=== PATIENT | female | born 1950 | race Caucasian/White ===

== ENCOUNTER 2017-05-08 20:10 | Emergency (ER) | payer OTHER ==
[~2017-05-08] VITALS: Ht 157.5 cm; Wt 81.6 kg
== END 2017-05-08 22:45 | disposition home or self-care (01) ==
LOC: ER 20:10
DX: S70.01XA Contusion of right hip, initial encounter (principal); S30.0XXA Contusion of lower back and pelvis, initial encounter; S70.11XA Contusion of right thigh, initial encounter; W06.XXXA Fall from bed, initial encounter; Y93.89 Activity, other specified; Y92.013 Bedroom of single-family (private) house as the place of occurrence of the external cause; Y99.8 Other external cause status

== ENCOUNTER 2017-09-17 23:09 | Emergency (ER) | payer OTHER ==
[~2017-09-17] VITALS: Ht 165.1 cm; Wt 83.9 kg
[2017-09-17] MEDS ORDERED: TRAM1TAB98 (23:43)
[2017-09-17] MEDS ORDERED: TRADJENTA5 MG (23:45)
[2017-09-17] MEDS ORDERED: LISINOPRIL2.5 MG (23:45)
[2017-09-18] MEDS ORDERED: OMEPRAZOLE20 MG (00:41)
== END 2017-09-18 09:10 ==
LOC: ER 23:09 → CPU-OBS 23:14 → ER 23:14
DX: R07.89 Other chest pain (principal); R06.02 Shortness of breath

== ENCOUNTER 2018-06-18 11:00 | Emergency (ER) | payer OTHER ==
[~2018-06-18] VITALS: Ht 157.5 cm; Wt 83.9 kg
[~2018-06-18 11:00] MED LIST: LISINOPRIL2.5 MG; OMEPRAZOLE20 MG; TRADJENTA5 MG; TRAM1TAB98
== END 2018-06-18 15:39 | disposition home or self-care (01) ==
LOC: ER 11:00
DX: S40.012A Contusion of left shoulder, initial encounter (principal); W18.09XA Striking against other object with subsequent fall, initial encounter; Y93.89 Activity, other specified; Y92.39 Other specified sports and athletic area as the place of occurrence of the external cause; Y99.8 Other external cause status

== ENCOUNTER 2018-08-06 22:43 | Emergency (ER) | payer OTHER ==
[~2018-08-06] VITALS: Ht 157.5 cm; Wt 86.2 kg
[2018-08-06] MEDS ORDERED: METFORMIN HCL500 M2 (22:50)
== END 2018-08-07 02:22 | disposition left against medical advice (07) ==
LOC: ER 22:43
DX: Z53.20 Procedure and treatment not carried out because of patient's decision for unspecified reasons (principal)

== ENCOUNTER 2019-12-07 11:20 | Outpatient (CLI) | payer OTHER ==
[~2019-12-07 11:20] MED LIST changes: +METFORMIN HCL500 M2
== END 2019-12-07 11:31 | disposition home or self-care (01) ==
LOC: SONOGRAMA 11:20
PROVIDERS: ATTEND Pathology Anatomic Pathology & Clinical Pathology
DX: E04.2 Nontoxic multinodular goiter (principal)

== ENCOUNTER 2020-07-24 06:40 | Day surgery (SDC) | payer OTHER ==
[2020-07-24] MEDS ORDERED: PERCOCET 5-3251 EACH PO (11:54)
== END 2020-07-24 14:40 | disposition home or self-care (01) ==
LOC: CIR.AMB 06:40
PROVIDERS: ATTEND Surgery
DX: C73 Malignant neoplasm of thyroid gland (principal); Z20.822 Contact with and (suspected) exposure to COVID-19